=== PATIENT | male | born 1990 | race Caucasian/White ===

== ENCOUNTER 2016-12-13 20:20 | Emergency (ER) | payer OTHER ==
[2016-12-13] MEDS ORDERED: Diazepam SYRINGE* 5 MG/ML SYRINGE IV ONE (20:25)
[2016-12-13] MEDS ORDERED: fentaNYL* 50 MCG/ML 2 ML VIAL (100 MCG VIAL) IV SLOW PU ONE (20:55)
[2016-12-13] MEDS ORDERED: NS 0.9% 1000 ML* 1,000 ML IV ONE (20:57)
--- NOTE | 2016-12-13 21:07 | RAD ---
INDICATION: Right shoulder injury. TECHNIQUE: 3 views of the right shoulder were obtained. FINDINGS: There is anterior subcoracoid dislocation of the humeral head. There is flattening of the superolateral aspect of the humeral head consistent with a Hill-Sachs fracture. IMPRESSION: 1. ANTERIOR DISLOCATION OF THE HUMERUS. 2. HILL-SACHS FRACTURE.
[2016-12-13] MEDS ORDERED: Ketorolac INJ* 30 MG/ML 1 ML VIAL IV PUSH ONE (21:08)
[2016-12-13] MEDS ORDERED: Ketorolac INJ* 30 MG/ML 1 ML VIAL ONE (21:11)
--- NOTE | 2016-12-13 22:02 | RAD ---
INDICATION: Right shoulder dislocation status post external reduction. COMPARISON: Comparison is made with a prior x-ray study of the right shoulder of the same day. TECHNIQUE: A single view of the right shoulder was obtained. FINDINGS: The bones are in normal alignment. There is a Hill-Sachs fracture present. No other fractures are seen. IMPRESSION: 1. STATUS POST EXTERNAL REDUCTION. THE BONES ARE IN NORMAL ALIGNMENT. 2. HILL-SACHS FRACTURE.
[2016-12-13 22:34] VITALS: BP 135/75
--- NOTE | 2016-12-22 18:52 | ED ---
Upper Extremity Pain - HPI Summary HPI Summary: Pt here w/ Rt shoulder deformity and pain while playing basketball - went up to block a shot with his Rt arm and met resistance, ultimately hurting his arm. Denies numbness, tingling, weakness but has a good bit of pain in shoulder and arm feels weird. Denies h/o dislocation or injury here in the past. Has not tried anything prior to arrival. Came by ambulance and received fentanyl which helped pain a bit. Denies other injuries at this time. - History of Current Complaint Chief Complaint: EDExtremityUpper Stated Complaint: RT SHOULDER INJURY Time Seen by Provider: 12/13/16 20:24 Hx Obtained From: Patient PMH/Surg Hx/FS Hx/Imm Hx Previously Healthy: Yes Endocrine/Hematology History: Denies: Hx Anticoagulant Therapy, Hx Blood Disorders, Hx Unexplained Bleeding Infectious Disease History: Denies: Traveled Outside the [place] in Last 30 Days - Family History Known Family History: Positive: None - Social History Alcohol Use: Weekly Hx Substance Use: Yes Substance Use Type: Reports: Marijuana Hx Tobacco Use: No Smoking Status (MU): Never Smoked Tobacco Review of Systems Constitutional: Negative Negative: Fatigue Negative: Chest Pain Negative: Shortness Of Breath Negative: Vomiting, Nausea Positive: no symptoms reported Musculoskeletal: Other - see HPI Skin: Negative Negative: Bruising Neurological: Negative Psychological: Normal All Other Systems Reviewed And Are Negative: Yes Physical Exam Triage Information Reviewed: Yes Vital Signs On Initial Exam: Initial Vitals Resp 18 12/13/16 20:32 Vital Signs Reviewed: Yes Appearance: Positive: Well-Appearing, Well-Nourished, Pain Distress Skin: Positive: Warm, Dry - no overlying erythema or ecchymosis Head/Face: Positive: Normal Head/Face Inspection Eyes: Positive: Normal, EOMI ENT: Positive: Hearing grossly normal Respiratory/Lung Sounds: Positive: Breath Sounds Present Cardiovascular: Positive: Normal, Pulses are Symmetrical in both Upper and Lower Extremities Musculoskeletal: Positive: Limited @ - Rt shoulder appears dislocation - prominent AC joint w/ gapping just inferior and delt appears sunken-in; limited ROM Rt shoulder, elbow, wrist, fingers Neurological: Positive: Normal, Sensory/Motor Intact, Alert, Oriented to Person Place, Time, CN Intact II-III Psychiatric: Positive: Normal - [place] Coma Scale Coma Scale Total: 15 Procedures - Joint Reduction Joint Reduction Site: shoulder (R) Conscious Sedation: No - fentanyl and valium Reduction Attempts: 1 Pre-Procedure NV Exam: Yes - WNL Post Joint Reduction Film: joint reduced - NV intact Diagnostics - Vital Signs Vital Signs Pulse Resp BP 12/13/16 22:33 51 14 135/75 12/13/16 21:00 16 12/13/16 20:32 18 - Laboratory Lab Statement: Any lab studies that have been ordered have been reviewed, and results considered in the medical decision making process. Re-Evaluation - Re-Evaluation First Eval Change: Improved - pt placed in shoulder immobilizer immediately after reduction which was successful per clinical and XR exams Course/Dx - Diagnoses Provider Diagnoses: Dislocation of right shoulder joint, Hill-Sachs fracture of right humerus Discharge - Discharge Plan Condition: Stable Disposition: HOME Prescriptions: HYDROcodone/ACETAMIN 5-325 MG* [[place] 5-325 TAB*] 1 tab PO Q6H PRN #12 tab MDD 4 PRN Reason: Pain Ibuprofen TAB* [Motrin TAB* 600 MG] 600 mg PO Q6H PRN #20 tab PRN Reason: Pain Patient Education Materials: Shoulder Dislocation (ED), Proximal Humerus Fracture (ED) Forms: *Work Release Referrals: Tristen Nagy MD [Medical Doctor] - Additional Instructions: You presented tonight with a shoulder dislocation and fracture. Your dislocation was put back into place - it is important that you keep your arm in the immobilizer you are in until you are seen by orthopedics to prevent repeat of dislocation. You may ice, take ibuprofen and acetaminophen for pain - if pain disrupts your sleep, you may take norco (only take as directed). Follow-up with orthopedics this week - call tomorrow to schedule an appointment. *If you develop numbness, tingling or weakness in your extremity, return to ED
== END 2016-12-13 22:33 | disposition home or self-care (01) ==
LOC: ED 20:20
DX: S43.004A Unspecified dislocation of right shoulder joint, initial encounter (principal); S42.291A Other displaced fracture of upper end of right humerus, initial encounter for closed fracture; X58.XXXA Exposure to other specified factors, initial encounter; Y93.67 Activity, basketball; Y92.89 Other specified places as the place of occurrence of the external cause; Y99.9 Unspecified external cause status
CPT/HCPCS: 96374; 96375; 99282; J1885; J3010; J3360

== ENCOUNTER 2018-09-02 11:17 | Emergency (ER) | payer OTHER ==
--- NOTE | 2018-09-02 12:04 | ED ---
Upper Extremity Pain - HPI Summary HPI Summary: This patient is a 28 year old M presenting to [facility] accompanied by a male with a chief complaint of right shoulder pain and deformity since just [facility]. The patient rates the pain 9/10 in severity. Denies fever. The patient states that the last time this happened, it went back in immediately. The patient was playing basketball when the dislocation occurred. PMHX two other right shoulder dislocations. - History of Current Complaint Chief Complaint: EDShoulderClavicleIlatasha Stated Complaint: SHOULDER INJURY RIGHT Time Seen by Provider: 09/02/18 11:47 Hx Obtained From: Patient Onset/Duration: Started Minutes Ago Timing: Constant Severity Currently: Severe - 9/10 Pain Location: Shoulder - right Related History: Similar Episode/Dx As - two past dislocations - Allergies/Home Medications Allergies/Adverse Reactions: Allergies Allergy/AdvReac Type Severity Reaction Status Date / Time No Known Allergies Allergy Verified 09/02/18 11:53 Home Medications: Home Medications NK [No Home Medications Reported] 09/02/18 [History Confirmed 09/02/18] PMH/Surg Hx/FS Hx/Imm Hx Endocrine/Hematology History: Denies: Hx Anticoagulant Therapy, Hx Blood Disorders, Hx Unexplained Bleeding Musculoskeletal History: Reports: Other Musculoskeletal History - 3x shoulder dislocations Infectious Disease History: No Infectious Disease History: Denies: Traveled Outside the [place] in Last 30 Days - Family History Known Family History: Negative: Blood Disorder - Social History Alcohol Use: Weekly Hx Substance Use: Yes Substance Use Type: Reports: Marijuana Hx Tobacco Use: No Smoking Status (MU): Never Smoked Tobacco Review of Systems Negative: Fever Positive: Decreased ROM - right shoulder All Other Systems Reviewed And Are Negative: Yes Physical Exam - Summary Physical Exam Summary: Appearance: Well appearing, no pain distress Skin: warm, dry, reflects adequate perfusion Head/face: normal Right shoulder: deformity with tenderness. ROM restricted. No neurovascular deficit of the arm. Eyes: EOMI, EVELIN ENT: normal Neck: supple, non-tender Respiratory: CTA, breath sounds present Cardiovascular: RRR, pulses symmetrical Abdomen: non-tender, soft Musculoskeletal: normal, strength/ROM intact everywhere except right shoulder Neuro: normal, sensory motor intact, A&Ox3 Triage Information Reviewed: Yes Vital Signs On Initial Exam: Initial Vitals Temp Pulse Resp BP Pulse Ox 97.7 F 115 20 115/90 97 09/02/18 11:18 09/02/18 11:18 09/02/18 11:18 09/02/18 11:18 09/02/18 11:18 Vital Signs Reviewed: Yes Procedures - Procedure Summary Procedure Summary: The right shoulder was successfully reduced with traction-countertraction. The patient refused pain medication. Diagnostics - Vital Signs Vital Signs Temp Pulse Resp BP Pulse Ox 09/02/18 11:18 97.7 F 115 20 115/90 97 - Laboratory Lab Statement: Any lab studies that have been ordered have been reviewed, and results considered in the medical decision making process. - Radiology Shoulder X Ray Radiology Interpretation Completed By: Radiologist Summary of Radiographic Findings: RIGHT SHOULDER DISLOCATION, REDUCED ON SUBSEQUENT IMAGING. ED physician has reviewed this report. 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 The patient rates the pain 9/10 in severity. CXR reveals, per radiologist, RIGHT SHOULDER DISLOCATION, REDUCED ON SUBSEQUENT IMAGING. ED physician has reviewed this report. The shoulder was successfully reduced, the patient refused pain medication. Patient will be discharged with follow up from Dr. Weir. The patient is agreeable with this plan. - Diagnoses Provider Diagnoses: Shoulder dislocation Discharge - Sign-Out/Discharge Documenting (check all that apply): Patient Departure - discharge Patient Received Moderate/Deep Sedation with Procedure: No - Discharge Plan Condition: Stable Disposition: HOME Patient Education Materials: Shoulder Dislocation (ED) Referrals: Laney Weir MD [Medical Doctor] - 1 Week Additional Instructions: Follow up with Dr. Weir in one week. - Billing Disposition and Condition Condition: STABLE Disposition: Home - Attestation Statements Document Initiated by Marybelibe: Yes Documenting Scribe: Terry Woodruff Provider For Whom Joanie is Documenting (Include Credential): Didier Thorpe MD Scribe Attestation: Terry Lozada scribed for Didier Thorpe MD on 09/02/18 at 1248. Scribe Documentation Reviewed: Yes Provider Attestation: The documentation as recorded by the Terry baez accurately reflects the service I personally performed and the decisions made by me, Didier Thorpe MD Status of Scribe Document: Viewed
[2018-09-02 12:53] VITALS: BP 119/88
== END 2018-09-02 12:52 | disposition home or self-care (01) ==
LOC: ED 11:17
DX: S43.004A Unspecified dislocation of right shoulder joint, initial encounter (principal); X58.XXXA Exposure to other specified factors, initial encounter; Y93.67 Activity, basketball; Y92.9 Unspecified place or not applicable
CPT/HCPCS: 23650; 99282